=== PATIENT | male | born 1960 | race Caucasian/White ===

== ENCOUNTER → 2019-07-21 15:42 | Outpatient (CLI) | payer SELFPAY ==
--- NOTE | ~2019-07-21 | CT_ITS ---
EXAMINATION: CT abdomen pelvis w con EXAM DATE: 07/21/2019 16:13 INDICATION: Left-sided abdominal pain. TECHNIQUE: Spiral CT of the abdomen and pelvis was performed following intravenous injection of 100 m L Omnipaque 350. Axial, coronal and sagittal images were reviewed. The dose-length product (DLP) fo r this examination was 444.29 mGy-cm. The exposure was tailored according to patient size (auto mA e xposure control), and iterative reconstruction (ASIR) was used as additional dose reduction technique . There is no prior study for comparison. FINDINGS: The liver, spleen, adrenal glands and pancreas are unremarkable. Gallbladder is unremarkab le. No biliary obstruction. Portal and splenic veins are patent. Kidneys enhance symmetrically. T here is no hydronephrosis. The prostate is unremarkable. The bladder is unremarkable. There is no retroperitoneal or pelvic lymphadenopathy. There is mild scattered arteriosclerotic disease. The appendix is not positively visualized. There is no pericecal inflammatory change to suggest appe ndicitis. The stomach and small bowel are unremarkable. There is expected amount of colonic stool. No free intraperitoneal gas. The heart is normal in size. There are no pericardial or pleural e ffusions. The lung bases are unremarkable. There are no osteoblastic or osteolytic lesions identifi ed. Bilateral L5 spondylolysis with moderate to severe disc disease at this level and grade 1 anterol isthesis. IMPRESSION: 1. No acute intra-abdominal findings. 2. Bilateral L5 spondylolysis, grade 1 anterolisthesis. Reviewed, dictated and finalized at location A.
== END ==
PROVIDERS: Visit Provider Pediatrics
DX: R10.84 Generalized abdominal pain (principal); M47.816 Spondylosis without myelopathy or radiculopathy, lumbar region; M43.16 Spondylolisthesis, lumbar region
CPT/HCPCS: 74177; Q9967

== ENCOUNTER → 2020-09-08 08:03 | Outpatient (CLI) | payer SELFPAY ==
--- NOTE | ~2020-09-08 | XR_ITS ---
EXAMINATION: XR knee RT min 4V DATE: 09/08/2020 08:30 INDICATION: Right knee pain. TECHNIQUE: 4 views of right knee were obtained. COMPARISON: None. FINDINGS: There is varus angulation at the knee. No fracture. There is moderate osteoarthritis of med ial compartment and mild osteoarthritis of lateral and patellofemoral compartments. There is a small knee joint effusion. IMPRESSION: 1. Moderate right knee osteoarthritis. 2. Small right knee joint effusion. Reviewed, dictated and finalized at location A.
== END ==
PROVIDERS: PCP Pediatrics; Visit Provider Pediatrics
DX: M17.11 Unilateral primary osteoarthritis, right knee (principal); M25.461 Effusion, right knee
CPT/HCPCS: 73564

== ENCOUNTER → 2021-08-18 17:17 | Outpatient (CLI) | payer SELFPAY ==
--- NOTE | ~2021-08-18 | XR_ITS ---
XR knee RT min 4V DATE: 08/18/2021 17:47 INDICATION: Right knee pain TECHNIQUE: Standing AP, lateral and PA views. [place] view. COMPARISON: 09/08/2020 right knee FINDINGS: There is prominent loss of medial compartment joint space and mild periarticular spurring o f the medial tibial plateau consistent with osteoarthritis. There is periarticular spurring of the patella consistent with patellofemoral osteoarthritis. The ost eoarthritic changes are mildly increased compared to 09/08/2020. Mild suprapatellar knee joint effusion. Possible old healed proximal fibular shaft fracture. No recent fracture or dislocation, periosteal re action or bone destruction, radiopaque intra-articular loose body or chondrocalcinosis. IMPRESSION: Patellofemoral and medial compartment osteoarthritis Mild suprapatellar knee joint effusion Reviewed, dictated and finalized at location A.
== END ==
PROVIDERS: PCP Pediatrics
DX: M17.11 Unilateral primary osteoarthritis, right knee (principal); M25.461 Effusion, right knee
CPT/HCPCS: 73564

== ENCOUNTER 2024-01-10 14:30 | Outpatient (CLI) | payer SELFPAY ==
--- NOTE | ~2024-01-10 | MR_ITS ---
EXAMINATION: MR abdomen wo con DATE: 01/10/2024 15:18 INDICATION: Right flank pain. TECHNIQUE: Magnetic resonance imaging (MRI) of the abdomen was performed without intravenous contrast . COMPARISON: CT abdomen and pelvis 07/21/2019 FINDINGS: The liver, gallbladder, spleen, pancreas, adrenal glands, and kidneys are normal. There are no dilate d loops of bowel. There are no pathologically enlarged lymph nodes. There is no free intraperitoneal fluid. IMPRESSION: 1. No etiology for the patient's symptoms. Reviewed, dictated and finalized at location A.
== END 2024-01-10 14:31 | disposition home or self-care (01) ==
PROVIDERS: PCP Pediatrics; Visit Provider Pediatrics
DX: R10.9 Unspecified abdominal pain (principal); E03.9 Hypothyroidism, unspecified
CPT/HCPCS: 74181

== ENCOUNTER 2024-06-19 08:43 | Outpatient (CLI) | payer SELFPAY | END 2024-06-19 08:44 | disposition home or self-care (01) | LOC: MICIMG 08:44 | PROVIDERS: PCP Pediatrics; Visit Provider Nurse Practitioner Family | DX: S83.231A Complex tear of medial meniscus, current injury, right knee, initial encounter (principal); S83.271A Complex tear of lateral meniscus, current injury, right knee, initial encounter; M17.11 Unilateral primary osteoarthritis, right knee; M94.261 Chondromalacia, right knee; M71.21 Synovial cyst of popliteal space [Baker], right knee; X58.XXXA Exposure to other specified factors, initial encounter | CPT/HCPCS: 73560; 73721 ==